=== PATIENT | female | born 1975 | race Caucasian/White ===

== ENCOUNTER 2017-09-12 18:50 | Inpatient (IN) | payer OTHER ==
[2017-09-12 19:56] VITALS: BMI 28.7
[2017-09-12] MEDS ORDERED: OXYTOCIN 20 UNITS in 0.9% NS 20 UNIT/1,000 ML INFUS.BAG IV ONE ×2 (20:12→22:14)
[2017-09-12] MEDS ORDERED: LIDOCAINE HCL 1% PRESERVATIVE FREE - 30ML VIAL ONE (20:12)
[2017-09-12] MEDS ORDERED: AMPICILLIN - 2 GM in SODIUM CHLORIDE 100 ML IVPB ONE (20:15)
[2017-09-12 20:18] LABS: BASO % 0.1 % (0-2.0); EOS % 0.4 % (0-4.5); HEMATOCRIT 35.1 % (32.4-45.2); HEMOGLOBIN 12.2 GM/dL (10.7-15.3); LYMPH % 22.2 % (8-40); MCH 33.1 pg (25.7-33.7); MCHC 34.8 g/dl (32.0-36.0); MEAN CELL VOLUME 95.1 fl (80-96); MONO % 7.5 % (3.8-10.2); NEUT % 69.8 % (42.8-82.8); PLATELET COUNT 207 K/MM3 (134-434); RBC 3.69 M/mm3 (3.60-5.2); RDW 13.5 % (11.6-15.6); WHITE BLOOD COUNT 8.2 K/mm3 (4.0-10.0)
--- NOTE | 2017-09-12 20:34 | HP ---
Past Medical History - Admission Chief Complaint: Labor pain History of Present Illness: 42 yo @ 40 weeks gestation, EDC 09/11/17, admitted for labor pain. Upon admission she was 4cm dilated with intact membrane. History Source: Patient Limitations to Obtaining History: No Limitations - Past Medical History ...: 4 ...Para: 2 ...Term: 2 ...: 0 ...Spon : 1 ...Induced : 0 ...Multiple Gestation: 0 ...LMP: 12/05/16 ... Weeks Gestation by Dates: 40 ...EDC by Dates: 09/12/17 ...EDC by Sono: 09/11/17 - Past Surgical History Past Surgical History: Yes: None Hx Myomectomy: No Hx Transabdominal Cerclage: No - Smoking History Smoking history: Never smoked Have you smoked in the past 12 months: No - Alcohol/Substance Use Hx Alcohol Use: No History of Substance Use: reports: None - Social History Usual Living Arrangement: Yes: With Spouse History of Recent Travel: No Home Medications - Allergies Allergies/Adverse Reactions: Allergies Allergy/AdvReac Type Severity Reaction Status Date / Time No Known Allergies Allergy Verified 09/01/17 11:35 - Home Medications Home Medications: Ambulatory Orders Ferrous Sulfate [Iron] 325 mg PO DAILY 06/25/17 Prenat 115/Iron Fum/Folic/Dss [ 19 Tablet] 1 tab PO DAILY 06/25/17 Family Disease History - Family Disease History Family History: Unremarkable Review of Systems - Review of Systems Constitutional: reports: No Symptoms Eyes: reports: No Symptoms HENT: reports: No Symptoms Neck: reports: No Symptoms Cardiovascular: reports: No Symptoms Respiratory: reports: No Symptoms Gastrointestinal: reports: No Symptoms Genitourinary: reports: Pain Breasts: reports: No Symptoms Reported Musculoskeletal: reports: No Symptoms Neurological: reports: No Symptoms Endocrine: reports: No Symptoms Hematology/Lymphatic: reports: No Symptoms Psychiatric: reports: No Symptoms Pain Intensity: 8 Physical Exam - Maternity Vital Signs: Vital Signs Temperature 97.8 F 09/12/17 19:43 Pulse Rate 73 09/12/17 19:43 Respiratory Rate 18 09/12/17 19:43 Blood Pressure 131/70 09/12/17 19:43 O2 Sat by Pulse Oximetry (%) Constitutional: Yes: Well Nourished Eyes: Yes: Conjunctiva Clear HENT: Yes: Atraumatic Neck: Yes: Supple Cardiovascular: Yes: Regular Rate and Rhythm Lungs: Clear to auscultation Breast(s): Yes: WNL - Abdominal Exam/OB Number of Fetuses: Single Presentation: Vertex Contractions: Yes Intensity: Mod/Strong - Vaginal Exam/OB Dilatation (cm): 4 Effacement (%): 90 Amniotic Membrane Status: Intact Station: -1 - Physical Exam Musculoskeletal: Yes: WNL Extremities: Yes: WNL ...Motor Strength: WNL Psychiatric: Yes: Alert, Oriented Problem List - Problems (1) Pain during labor Code(s): O99.89 - OTH DISEASES AND CONDITIONS COMPL PREG/CHLDBRTH; R52 - PAIN, UNSPECIFIED Assessment/Plan Active labor Admit to L&D Analgesia as needed Anticipate
[2017-09-12 20:38] LABS: INR 0.96 (0.82-1.09); PROTHROMBIN TIME (PATIENT) 10.9 SEC (9.7-13.0)
[2017-09-12 20:41] LABS: ACTIVATED PTT 26.6 SECONDS (26.9-34.4)
[2017-09-12 20:57] LABS: ANION GAP 8 (8-16); BLOOD UREA NITROGEN 6 mg/dL (7-18); CALCIUM 9.4 mg/dL (8.5-10.1); CHLORIDE 104 mmol/L (98-107); CO2 24 mmol/L (21-32); CREATININE 0.5 mg/dL (0.55-1.02); GLUCOSE,RANDOM 124 mg/dL (74-106); POTASSIUM 3.7 mmol/L (3.5-5.1); SODIUM 136 mmol/L (136-145)
[2017-09-12] MEDS ORDERED: ACETAMINOPHEN 325 MG TABLET (FP) ONE (22:14)
[2017-09-12] MEDS ORDERED: IBUPROFEN 600 MG TABLET (FP) PO ONE (22:14)
[2017-09-12] MEDS: IBUPROFEN 600 MG TABLET (FP) PO PRN (22:15)
[2017-09-12] MEDS: ACETAMINOPHEN 325 MG TABLET (FP) PO PRN (22:15)
[2017-09-12] MEDS ORDERED: DEXTROSE 5%-LACTATED RINGERS 1,000 ML IV SCH (22:45)
[2017-09-12] MEDS ORDERED: OXYTOCIN 20 UNITS in 0.9% NS 20 UNIT/1,000 ML INFUS.BAG IV SCH (22:45)
[2017-09-12] MEDS ORDERED: OXYTOCIN 20 UNITS in 0.9% NS 1,000 ML IV SCH (23:45)
[2017-09-12] MEDS ORDERED: WITCH HAZEL 50% (TUCKS) 40 PAD/JAR PAD TP PRN (23:53)
[2017-09-12] MEDS ORDERED: IBUPROFEN 600 MG TABLET (FP) PO PRN (23:53)
[2017-09-12] MEDS ORDERED: BENZOCAINE 28 GM HEMORRHOIDAL OINTMENT TP PRN (23:53)
[2017-09-12] MEDS ORDERED: BENZOCAINE 20% 57 GM BOTTLE TP PRN (23:53)
[2017-09-12] MEDS ORDERED: METHYLERGONOVINE MALEATE 0.2 MG/1 ML AMP IM PRN (23:53)
[2017-09-12] MEDS ORDERED: ACETAMINOPHEN 325 MG TABLET (FP) PO PRN (23:53)
[2017-09-12] MEDS ORDERED: BISACODYL 10 MG SUPP.RECT RC PRN (23:53)
--- NOTE | 2017-09-12 23:57 | PN ---
Delivery - Delivery Vaginal Delivery: Spontaneous Type of Anesthesia: Local Episiotomy/Laceration: 1st degree EBL (cc): 300 Delivery, Single - Stages of Labor Date 1st Stage Initiatied: 09/12/17 Time 1st Stage Initiated: 14:30 Date 2nd Stage Initiated: 09/12/17 Time 2nd Stage Initiated: 20:30 Date of Delivery: 09/12/17 Time of Delivery: 21:00 Time Placenta Delivered: 21:10 - Condition of Machine Operators/Set Key Driver Present: No Gender: Female Weight: 7 lb 1 oz Position: Right, OA Total Hours ROM (Hrs/Mins): 1HR/10MIN - 1 Minute Total Score: 9 5 Minutes Total Score: 9 - [place] Feeding Plan Initial Plan: Elected not to breastfeed exclusively throughout hospitalization Remarks - Remarks Remarks: Normal spontaneous vaginal delivery of a live girl over second degree laceration. Nose / Oropharynx suctioned @ perineum. Nuchal cord x 2 clamped and cut. Placenta expelled spontaneously intact. Laceration repaired with 2.0 Chromic.
--- NOTE | 2017-09-13 02:17 | PN ---
Post Progress Note - Subjective Subjective: 42 yo Para 3 status post , seen and evaluated. Doing well. Post Day: 1 Type of Delivery: Vital Signs: Vital Signs Temperature 98 F 09/13/17 01:48 Pulse Rate 57 L 09/13/17 01:48 Respiratory Rate 18 09/13/17 01:48 Blood Pressure 117/71 09/13/17 01:48 O2 Sat by Pulse Oximetry (%) Breast Exam: Yes: Soft Uterus: Yes: Fundus Firm Abdomen/GI: Yes: Abdomen soft, Tolerating PO Lochia: Yes: Rubra Lochia, amount: Moderate Extremities: Yes: Calves non-tender Perineum: Yes: Laceration (healing) Activity: Ambulating - Labs Labs: CBC WBC 8.2 K/mm3 (4.0-10.0) 09/12/17 19:20 RBC 3.69 M/mm3 (3.60-5.2) 09/12/17 19:20 Hgb 12.2 GM/dL (10.7-15.3) 09/12/17 19:20 Hct 35.1 % (32.4-45.2) 09/12/17 19:20 MCV 95.1 fl (80-96) 09/12/17 19:20 MCH 33.1 pg (25.7-33.7) 09/12/17 19:20 MCHC 34.8 g/dl (32.0-36.0) 09/12/17 19:20 RDW 13.5 % (11.6-15.6) 09/12/17 19:20 Plt Count 207 K/MM3 (134-434) 09/12/17 19:20 MPV 10.0 fl (7.5-11.1) 09/12/17 19:20 Neutrophils % 69.8 % (42.8-82.8) 09/12/17 19:20 Lymphocytes % 22.2 % (8-40) 09/12/17 19:20 Monocytes % 7.5 % (3.8-10.2) 09/12/17 19:20 Eosinophils % 0.4 % (0-4.5) 09/12/17 19:20 Basophils % 0.1 % (0-2.0) 09/12/17 19:20 Problem List - Problems (1) Pain during labor Code(s): O99.89 - OTH DISEASES AND CONDITIONS COMPL PREG/CHLDBRTH; R52 - PAIN, UNSPECIFIED Assessment/Plan Status post normal vaginal delivery Stable Continue routine post op care
[2017-09-13] MEDS: FERROUS SO4 325 MG TABLET (FP) PO SCH ×3 (08:07→17:33)
[2017-09-13] MEDS: AMPICILLIN - 1 GM in SODIUM CHLORIDE 100 ML IVPB SCH ×4 (08:09→20:15)
[2017-09-13] MEDS: IBUPROFEN 600 MG TABLET (FP) PO PRN ×2 (08:14→21:44)
[2017-09-13] MEDS: ACETAMINOPHEN 325 MG TABLET (FP) PO PRN ×2 (08:15→21:45)
[2017-09-13 08:53] LABS: BASO % 0.2 % (0-2.0); EOS % 0.2 % (0-4.5); HEMATOCRIT 31.6 % (32.4-45.2); HEMOGLOBIN 10.8 GM/dL (10.7-15.3); LYMPH % 16.7 % (8-40); MCH 32.6 pg (25.7-33.7); MCHC 34.3 g/dl (32.0-36.0); MEAN PLT VOLUME 9.9 fl (7.5-11.1); MONO % 6.6 % (3.8-10.2); NEUT % 76.3 % (42.8-82.8); PLATELET COUNT 181 K/MM3 (134-434); RBC 3.33 M/mm3 (3.60-5.2); RDW 13.3 % (11.6-15.6); WHITE BLOOD COUNT 11.3 K/mm3 (4.0-10.0)
[2017-09-13] MEDS: PRENATAL VITAMINS W/ FOLIC ACID TABLET (FP) PO SCH (09:29)
[2017-09-13] MEDS ORDERED: SENNOSIDES/DOCUSATE COMBO (SENNA PLUS) TABLET (UD) PO PRN (22:00)
[2017-09-14] MEDS: FERROUS SO4 325 MG TABLET (FP) PO SCH ×2 (08:47→11:54)
[2017-09-14] MEDS: PRENATAL VITAMINS W/ FOLIC ACID TABLET (FP) PO SCH (10:04)
[2017-09-14 10:28] VITALS: BP 96/56; PULSE 66; TEMP 98.1
[2017-09-14] MEDS: ACETAMINOPHEN 325 MG TABLET (FP) PO PRN (11:56)
[2017-09-14] MEDS: IBUPROFEN 600 MG TABLET (FP) PO PRN (11:57)
--- NOTE | 2017-09-14 22:09 | DS ---
Physical Exam-PEDIGREE RESEARCHER Vital Signs: Vital Signs Temperature 98.1 F 09/14/17 09:00 Pulse Rate 66 09/14/17 09:00 Respiratory Rate 20 09/14/17 09:00 Blood Pressure 96/56 09/14/17 09:00 O2 Sat by Pulse Oximetry (%) Constitutional: Yes: Well Nourished Eyes: Yes: Conjunctiva Clear HENT: Yes: Atraumatic Neck: Yes: Supple Cardiovascular: Yes: Regular Rate and Rhythm Respiratory: Yes: Regular Gastrointestinal: Yes: Normal Bowel Sounds ...Rectal Exam: Yes: WNL External Genitalia: Yes: Normal Vaginal Exam: Yes: Normal Cervix: Yes: Normal Uterus: Yes: Firm ....Post : Yes: Uterus firm, Moderate lochia serosa Breast(s): Yes: WNL Extremities: Yes: WNL Neurological: Yes: Alert, Oriented ...Motor Strength: WNL Psychiatric: Yes: Alert, Oriented Labs: CBC, BMP 09/13/17 08:00 09/12/17 19:20 Delivery - Delivery Vaginal Delivery: Spontaneous Type of Anesthesia: Local Episiotomy/Laceration: 1st degree EBL (cc): 300 Delivery, Single - Stages of Labor Date 1st Stage Initiatied: 09/12/17 Time 1st Stage Initiated: 14:30 Date 2nd Stage Initiated: 09/12/17 Time 2nd Stage Initiated: 20:30 Date of Delivery: 09/12/17 Time of Delivery: 21:00 Time Placenta Delivered: 21:10 - Condition of Tractor Trailer Mechanic/Straight Line Edger Present: No Infant Gender: Female Weight: 7 lb 1 oz Position: Right, OA Total Hours ROM (Hrs/Mins): 1HR/10MIN - 1 Minute Total Score: 9 5 Minutes Total Score: 9 - [place] Feeding Plan Initial Plan: Elected not to breastfeed exclusively throughout hospitalization Discharge Summary Reason For Visit: ADMIT LABOR Procedures: Principal: Normal spontaneous vaginal delivery Hospital Course: Routine care Condition: Good - Instructions Diet, Activity, Other Instructions: Regular diet No douching, no sexual intercourse x 6 weeks F/U in clinic in 6 weeks. call [facility] for appointment. [phone] Disposition: HOME - Home Medications Comprehensive Discharge Medication List: Ambulatory Orders Ferrous Sulfate [Iron] 325 mg PO DAILY 06/25/17 Prenat 115/Iron Fum/Folic/Dss [ 19 Tablet] 1 tab PO DAILY 06/25/17
== END 2017-09-14 13:30 | disposition home or self-care (01) | DRG 560 ==
LOC: JLDR 18:50 → J3W 22:50
PROVIDERS: ADMIT Obstetrics & Gynecology; ATTEND Obstetrics & Gynecology
PROC: 10E0XZZ Delivery of Products of Conception, External Approach (ICD-10-PCS; principal; 2017-09-12)
PROC: 0KQM0ZZ Repair Perineum Muscle, Open Approach (ICD-10-PCS; 2017-09-12)
DX: O48.0 Post-term pregnancy (principal); O69.81X0 Labor and delivery complicated by cord around neck, without compression, not applicable or unspecified; O70.1 Second degree perineal laceration during delivery; Z3A.40 40 weeks gestation of pregnancy; Z37.0 Single live birth
CPT/HCPCS: 36415; 59409; 80048; 85025; 85610; 85730; 86593; 86850; 86900; 86901